=== PATIENT | female | born 1955 | race Caucasian/White ===

== ENCOUNTER 2022-03-12 10:48 | Emergency (ER) | payer MEDICARE, BC ==
[2022-03-12] MEDS ORDERED: GLUCOPHAGE PO (11:13)
[2022-03-12] MEDS ORDERED: ALDACTONE50 M1 (11:13)
[2022-03-12 11:37] LABS: BASO # 0.02 K/mm3 (0.02-0.10); EOS # 0.06 K/mm3 (0.04-0.40); EOS % 0.6 % (1.0-5.0); HEMATOCRIT 28.1 % (37.0-47.0); HEMOGLOBIN 9.7 g/dL (12.5-16.0); LYMPH# 1.15 K/mm3 (1.50-4.00); MEAN CELL VOLUME 90 fl (78-100); MEAN CORPUSCULAR HEMOGLOBIN 31 pg (27-31); MEAN CORPUSCULAR HGB CONC 35 g/dL (33-37); NEU # 7.29 K/mm3 (1.40-6.50); PLATELET COUNT 308 K/mm3 (130-400); RED BLOOD COUNT 3.13 M/mm3 (4.10-5.30); RED CELL DISTRIBUTION WIDTH 13.3 % (11.5-14.5); WHITE BLOOD COUNT 9.8 K/mm3 (4.8-10.8)
[2022-03-12 11:48] LABS: ALBUMIN 3.1 g/dL (3.4-4.8); POTASSIUM 3.4 mmol/L (3.5-5.1)
[2022-03-12 11:49] LABS: CALCIUM 9.8 mg/dL (8.3-10.5)
[2022-03-12 11:51] LABS: TOTAL PROTEIN 6.2 g/dL (6.2-8.1)
[2022-03-12 11:59] LABS: URINE APPEARANCE CLEAR; URINE BILIRUBIN NEGATIVE (NEGATIVE); URINE BLOOD NEGATIVE (NEGATIVE); URINE COLOR YELLOW; URINE KETONE 1+ (NEGATIVE); URINE LEUKOCYTE ESTERASE NEGATIVE (NEGATIVE); URINE NITRATE NEGATIVE (NEGATIVE); URINE PROTEIN(semi-quant) NEGATIVE (NEGATIVE); URINE UROBILINOGEN NORMAL (NORMAL); URINE WBC 0-1 /hpf (0-3)
[2022-03-12 12:15] LABS: MAGNESIUM 2.34 mg/dL (1.60-2.60)
[2022-03-12 16:45] VITALS: BP 138/53
== END 2022-03-12 18:32 | disposition short-term general hospital (02) ==
LOC: ED 10:48
PROVIDERS: Family Medicine
DX: E11.65 Type 2 diabetes mellitus with hyperglycemia (principal); Z20.822 Contact with and (suspected) exposure to COVID-19; Z28.310 Unvaccinated for COVID-19
CPT/HCPCS: J1815; J2405; J3010; J7030

== ENCOUNTER → 2022-03-30 | Outpatient (CLI) | payer MEDICARE, BC ==
[~2022-03-30] MED LIST: ALDACTONE50 M1; GLUCOPHAGE PO
== END ==
LOC: RAD 08:30
DX: H92.11 Otorrhea, right ear (principal); H92.01 Otalgia, right ear